=== PATIENT | female | born 1975 | race Caucasian/White ===

== ENCOUNTER → 2021-10-01 | Outpatient (CLI) | payer BC ==
[2021-10-01 10:20] LABS: MEAN CORP HGB 28.4 pg (26-34); RED CELL DISTRIBUTION WIDTH 14.4 % (11.5-14.5)
[2021-10-01 10:52] LABS: CARBON DIOXIDE 29.4 mmol/L (20.0-32)
--- NOTE | 2021-10-01 13:14 | DIREP ---
PROCEDURE:Digital Screening Mammogram TECHNIQUE:MLO and CC digital images of each breast are provided. Computer Assisted Detection (CAD) was utilized. COMPARISON:None. INDICATIONS:SCREENING BREAST COMPOSITION:Extremely dense, which lowers the sensitivity of mammography. FINDINGS:There are no grouped microcalcifications, masses, or architectural distortions to suggest malignancy. IMPRESSION:No mammographic evidence of malignancy. However, this examination is technically suboptimal, and is therefore considered incomplete. RECOMMENDATIONS:Additional imaging evaluation is needed (special mammographic views). The left MLO view shows motion. Our facility will attempt to contact the patient for repeat view(s). OVERALL FINAL ASSESSMENT:BI-RADS 0T - Incomplete: Need Additional Imaging Evaluation Note: This facility participates in a mammography screening patient reminder system. Dictated by: Vic Torres M.D. on 10/01/2021 at 01:11 PM
== END | disposition home or self-care (01) ==
LOC: RAD 09:45
PROVIDERS: ATTEND Nurse Practitioner Women's Health
DX: Z12.31 Encounter for screening mammogram for malignant neoplasm of breast (principal); Z11.59 Encounter for screening for other viral diseases; E55.9 Vitamin D deficiency, unspecified; Z68.21 Body mass index [BMI] 21.0-21.9, adult
CPT/HCPCS: 36415; 77067; 80053; 80061; 82306; 83036; 84439; 84443; 85027; 86803

== ENCOUNTER 2022-08-17 16:12 | Emergency (ER) | payer BC ==
[~2022-08-17] VITALS: Ht 157.5 cm; Wt 52.2 kg
--- NOTE | 2022-08-17 16:14 | NUR ---
ARRIVAL PT ARRIVED AMBULATORY TO ED 4 WITH C/O CP SINCE MONDAY. PT HAS HAD A COUGH AND IT HURTS TO BREATHE. VITALS TAKEN AND DR NOTIFIED.
[2022-08-17 16:26] VITALS: BP 165/110
--- NOTE | 2022-08-17 16:26 | PCM.EKG ---
[facility] Test Date: 2022-08-17 Test Time: 16:15:45 Pat Name: RAHEEM GOSS Department: Room: Gender: F Process Artist: KAITLYN : 1975 Requested By: IDA LUNDY Order Number: [id number] Reading MD: Ida Lundy Measurements Intervals [place] Rate: 109 P: 84 [place]: 164 QRS: 80 QRSD: 78 T: 62 QT: 312 QTc: 421 Interpretive Statements Sinus tachycardia Biatrial enlargement Anteroseptal infarct, age indeterminate Baseline wander in lead(s) II,III,aVF,V5 No previous ECG available for comparison Electronically Signed On 08-18-2022 7:54:14 FEED ADVISER by Ida Lundy Please click the below link to view image of tracing.
--- NOTE | 2022-08-17 16:39 | ER.PDOC ---
General Chief Complaint: Chest Pain-Non Cardiac Nature Stated Complaint: CP Time seen by MD: 16:32 Source: patient History of Present Illness Initial Comments Excedingly anxious 47 yo heavy smoking female. Was very worried Fri night Has been taking BP measurments frequently as well as pulse rate Home issues,took an extra klonipin on FRi to sleep Heart was racing and ears were pounding denies drugs r alcohol EKG normal except tachycardic. Father of an HI at 79. Radiation: no radiation, epigastric Aspirin Today: Unknown Associated Symptoms: denies symptoms Allergies: Coded Allergies: codeine (Verified Allergy, Unknown, 09/20/21) Past Medical History Medical History: other (hypertension) Surgical History: Family History Significant Family History: no pertinent family hx Social History Smoking: greater than 1 pack/day Alcohol Use: none Drug Use: none Reviewed Nursing Reviewed: Vital Signs, Abn. Noted, Nursing Assessment Constitutional: malaise, weakness EENTM: no symptoms reported Respiratory: no symptoms reported Cardiovascular: see HPI, chest pain Gastrointestinal: no symptoms reported Genitourinary: no symptoms reported Musculoskeletal: no symptoms reported Skin: no symptoms reported Psychiatric/Neurological: anxiety, depressed Endocrine: no symptoms reported Hematologic/Lymphatic: no symptoms reported Physical Exam General Appearance: Anxious HEENT: PERRL/EOMI, Normal ENT Inspection Neck: Non-Tender, Full Range of Motion, Supple Respiratory: chest non-tender, lungs clear, normal breath sounds, no respiratory distress Cardiovascular: Normal Peripheral Pulses, Regular Rate, Rhythm, No Edema Gastrointestinal: Normal Bowel Sounds, No Organomegaly, No Pulsatile Mass, Non Tender Rectal: Deferred Extremities: Normal Range of Motion, Non-Tender, Normal Inspection 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, No Motor/Sensory Deficits, Alert, Oriented x 3, Depressed Affect Skin: Normal Color Lymphatic: No Adenopathy Results/Orders Results/Orders Vital Signs Date Time Temp Pulse Resp B/P (MAP) Pulse Ox O2 Delivery O2 Flow Rate FiO2 08/17/22 16:26 99.3 106 18 165/110 (128) 97 Room Air* 0 21 08/17/22 16:26 99.3 106 18 08/17/22 16:26 99.3 106 18 97 Progress Progress Labs normal patient less stressed EKG neg for ischemia EKG/XRAY/CT/US EKG: NSR, rhythm, NC, QRS ER DEPART Departure Time of Disposition: 18:21 Disposition: 01 HOME / SELF CARE / HOMELESS Impression: Primary Impression: Anxiety Condition: Stable Referrals: [facility] (PCP) PRIMARY CARE PROVIDER Comments patient needs counciling very stressed f/u with pcp reassurance Duration or Time Spent with Pa: 40 IDA LUNDY MD Aug 17, 2022 16:39
[2022-08-17 16:56] LABS: BASOPHIL % 0.3 % (0.0-0.2); EOSINOPHIL # 0.1 10^3/uL (0.0-0.2); LYMPHOCYTES # 1.28 10^3/uL1 (1.0-4.8); LYMPHOCYTES % 10.8 % (24.0-44.0); MEAN CORP HGB 30.6 pg (26-34); MONOCYTES # 1.1 10^3/uL (0.3-0.8); MONOCYTES % 8.9 % (5.0-12.0); NEUTROPHIL # 9.3 10^3/uL (1.8-7.7); NEUTROPHILS % 78.8 % (41.0-85.0); PLATELET COUNT 378 10^3/uL (150-400)
[2022-08-17 17:10] LABS: CARBON DIOXIDE 25.7 mmol/L (20.0-32); GLUCOSE 94 mg/dL (70-110)
--- NOTE | 2022-08-17 17:13 | DIREP ---
PROCEDURE:CHEST 1 VIEW COMPARISON:[facility], CR, XRAY CHEST 2 VWS, 11/19/2019, 11:52 AM. INDICATIONS:chest pain FINDINGS: LUNGS/PLEURA:No significant pulmonary parenchymal abnormalities. No effusions. No pneumothorax VASCULATURE:Normal. Unremarkable pulmonary vasculature. CARDIAC:Normal. No cardiac silhouette abnormality or cardiomegaly. MEDIASTINUM:Normal. No visible mass or adenopathy. BONES:Normal. No fracture or visible bony lesion. OTHER:Lordotic position CONCLUSION:No acute findings Dictated by: Jaison Painting MD on 08/17/2022 at 05:11 PM
[2022-08-17 17:55] VITALS: BP 165/110
== END 2022-08-17 18:34 | disposition home or self-care (01) ==
LOC: ER 16:12
DX: F41.9 Anxiety disorder, unspecified (principal); I10 Essential (primary) hypertension; F17.200 Nicotine dependence, unspecified, uncomplicated; Z82.49 Family history of ischemic heart disease and other diseases of the circulatory system; Z88.5 Allergy status to narcotic agent; Z20.822 Contact with and (suspected) exposure to COVID-19
CPT/HCPCS: 36415; 71045; 80053; 84484; 85025; 87426; 87804; 93005; 99284